=== PATIENT | male | born 1975 | race African-American/Black ===

== ENCOUNTER 2019-10-23 18:15 | Emergency (ER) | payer OTHER ==
[2019-10-23] MEDS ORDERED: ACETAMINOPHEN 325 MG TABLET PO ONE ×2 (20:20→20:33)
[2019-10-23] MEDS ORDERED: NORMAL SALINE 1000 ML 1,000 ML IV ONE (20:40)
--- NOTE | 2019-10-23 20:43 | ER Document Report ---
ED General - General Chief Complaint: Flu Symptoms Stated Complaint: COVID POS (FEVER INCREASE) Time Seen by Provider: 10/23/19 20:12 Primary Care Provider: ANDREA CULP PA-C [Primary Care Provider] - Follow up as needed Notes: Patient is a 44-year-old male that comes emergency department for chief complaint of a fever, sore throat, cough, body aches, painful breathing, and some soreness along the top of his chest. Cough is nonproductive, he denies shortness of breath, he denies nausea or vomiting, denies abdominal pain, denies headache. He is still able to eat without any difficulty. 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 He was seen by urgent care yesterday and had a rapid COVID-19 test performed, he reports this was positive. He has had symptoms now for approximately 3 days. Past medical history of type 2 diabetes on pills only, hypertension, hyperlipidemia, obesity, sleep apnea. He denies smoking, asthma/COPD, NE/CAD, or recreational drugs. TRAVEL OUTSIDE OF THE [place] IN LAST 30 DAYS: No - Related Data Allergies/Adverse Reactions: Penicillins Allergy (Verified 10/23/19 20:08) Past Medical History - General Information source: Patient - Social History Smoking Status: Former Smoker Frequency of alcohol use: Occasional Drug Abuse: None Lives with: Family Family History: Reviewed & Not Pertinent Patient has homicidal ideation: No - Past Medical History Cardiac Medical History: Reports: Hx Hypertension Endocrine Medical History: Reports: Hx Diabetes Mellitus Type 2 Renal/ Medical History: Reports: Hx Kidney Stones Past Surgical History: Reports: Hx Abdominal Surgery - lap band, Hx Orthopedic Surgery - left knee Review of Systems - Review of Systems Constitutional: See HPI EENT: See HPI Cardiovascular: See HPI Respiratory: See HPI Gastrointestinal: No symptoms reported Genitourinary: No symptoms reported Male Genitourinary: No symptoms reported Musculoskeletal: No symptoms reported Skin: No symptoms reported Hematologic/Lymphatic: No symptoms reported Neurological/Psychological: No symptoms reported Physical Exam - Vital signs Vitals: Pulse Resp BP Pulse Ox 117 H 18 145/96 H 96 10/23/19 18:44 10/23/19 18:44 10/23/19 18:44 10/23/19 18:44 - Notes Notes: GENERAL: Alert, interacts well. No acute distress. HEAD: Normocephalic, atraumatic. EYES: Pupils equal, round, and reactive to light. Extraocular movements intact. ENT: Oral mucosa moist, tongue midline. Oropharynx unremarkable. Airway patent. Nares patent, sinuses non-tender, ear canals unremarkable, TM's intact. NECK: Full range of motion. Supple. Trachea midline. No lymphadenopathy. LUNGS: Clear to auscultation bilaterally, no wheezes, rales, or rhonchi. No respiratory distress. Non-tender chest wall. HEART: Borderline tachycardia, normal rhythm, no murmur ABDOMEN: Soft, non-tender. Non-distended. No guarding or distention EXTREMITIES: Moves all 4 extremities spontaneously. No edema, normal radial and dorsalis pedis pulses bilaterally. No cyanosis. BACK: no cervical, thoracic, lumbar midline tenderness. No saddle anesthesia, normal distal neurovascular exam. Moves all extremities in full range of motion. NEUROLOGICAL: Alert and oriented x3. Normal speech. Cranial nerves II through XII grossly intact. Strength 5/5 in all extremities. PSYCH: Normal affect, normal mood. SKIN: Flushed and warm Course - Re-evaluation Re-evalutation: Laboratory work-up indicates no white blood cell abnormality, elevated lymphocytes, low platelets (borderline), very mildly elevated ALT, urinalysis unremarkable, chest x-ray unremarkable, EKG unchanged from prior, troponin is negative. Symptoms have been going on for 3 days. Patient is already reporting that he is positive for COVID-19. Patient is not hypoxic, after treatment of fever and treatment with IV fluids vital signs rechecked and are unremarkable. Patient is well-appearing and without any complaints on my reevaluation. Based on these findings patient does not require admission for COVID-19 infection, I discussed findings in detail, discussed options, patient has no requests and is ready for discharge. I discussed return precautions at length. Patient states understanding and agreement. Stable and well-appearing at time of discharge. - Vital Signs Vital signs: Temp Pulse Resp BP Pulse Ox 99.3 F 97 17 143/88 H 95 10/23/19 23:41 10/23/19 23:41 10/23/19 23:41 10/23/19 23:41 10/23/19 23:41 - Laboratory Result Diagrams: 10/23/19 21:40 10/23/19 21:40 Laboratory results interpreted by me: 10/23/19 10/23/19 10/23/19 21:40 21:40 22:31 WBC 3.9 L Plt Count 134 L [place] % (Auto) 17.6 H Sodium 134.9 L Glucose 267 H AST 60 H Urine Protein 30 H Urine Glucose (UA) >=500 H Urine Ketones TRACE H Urine Ascorbic Acid 40 H - EKG Interpretation by Me Additional EKG results interpreted by me: EKG shows sinus rhythm at a rate of 96, QTC of 410, normal axis. There are borderline inverted T waves in leads V4 and V5, however this is unchanged from prior. No ST segment changes in consecutive leads. Discharge - Discharge Clinical Impression: Dehydration, COVID-19 Fever Qualifiers: Fever type: unspecified Qualified Code(s): R50.9 - Fever, unspecified Condition: Stable Disposition: HOME, SELF-CARE Additional Instructions: You have been treated for dehydration, however your remaining evaluation is reassuring including your chest x-ray. Symptoms should simply resolve with time. Take Tylenol and ibuprofen for fever, drink plenty of fluids, and rest. Perform the 2-week quarantine and avoid contact with others if possible. See additional instructions on this below. Follow-up with primary care. Return if you worsen including difficulty breathing, uncontrolled vomiting, passing out, or any other concerning or worsening symptoms. Keep a log of visitors to your home, notify any visitors to your home of your isolation status. If you plan to move to a new address or leave the county, notify the local health department in your County. Call your Doctor or seek care if you have an urgent medical need. Before seeking medical care, call them to get instructions from the provider before arriving at the medical office, clinic, or hospital. Notify them that you are positive for COVID-19 so that arrangements can be made, as necessary, to prevent transmission to others in the healthcare setting. Next, notify the local health department in your county. If a medical emergency arises and you need to call 911, inform the first respo nders that you are positive for COVID-19. Referrals: ANDREA CULP PA-C [Primary Care Provider] - Follow up as needed
--- NOTE | 2019-10-23 21:41 | RADIOLOGY REPORT (SQ) ---
EXAM DESCRIPTION: XR CHEST 1 VIEW CLINICAL HISTORY: 44 years, Male, chest tightness, fever, shortness of breath, COVID COMPARISON: 03/07/2016. TECHNIQUE: Upright portable chest x-ray FINDINGS: Cardiomediastinal silhouette is not enlarged. No suspicious acute lung pleural bone abnormalities. IMPRESSION: No acute findings in chest.
[2019-10-23 22:04] LABS: ABSOLUTE LYMPHOCYTES (AUTO) 0.8 10^3/uL (0.5-4.7); ABSOLUTE MONOCYTES (AUTO) 0.7 10^3/uL (0.1-1.4); HEMOGLOBIN 13.6 g/dL (13.5-17.0); INTERNATIONAL RATION (INR) 0.96; PROTHROMBIN TIME 12.8 SEC (11.4-15.4); RED CELL DISTRIBUTION WIDTH 12.9 % (11.5-14.0); TOTAL CELLS COUNTED % (AUTO) 100 %; WHITE BLOOD COUNT 3.9 10^3/uL (4.0-10.5)
[2019-10-23 22:06] LABS: VENOUS BLOOD BASE EXCESS 2.2 mmol/L; VENOUS BLOOD HCO3 27.2 mmol/L (20-32); VENOUS BLOOD PCO2 43.7 mmHg (35-63); VENOUS BLOOD PH 7.41 (7.30-7.42)
[2019-10-23 22:17] LABS: ABSOLUTE NEUT (AUTO) 2.4 10^3/uL (1.7-8.2); BASOPHILS % (AUTO) 0.5 % (0-2); HEMATOCRIT 40.7 % (37.9-51.0); LYMPHOCYTES % (AUTO) 20.7 % (13-45); MEAN CORPUSCULAR HEMOGLOBIN 28.8 pg (27.0-33.4); MEAN CORPUSCULAR HGB CONC 33.5 g/dL (32.0-36.0); MEAN CORPUSCULAR VOLUME 86 fl (80-97); MONOCYTES % (AUTO) 17.6 % (3-13); PLATELET COUNT 134 10^3/uL (150-450); RED BLOOD COUNT 4.72 10^6/uL (4.35-5.55); SEGMENTED NEUTROPHILS % (AUTO) 61.2 % (42-78)
[2019-10-23 22:30] LABS: ALBUMIN 4.2 g/dL (3.5-5.0); ALKALINE PHOSPHATASE 57 U/L (38-126); ANION GAP 10 (5-19); ASPARTATE AMINO TRANSFERASE 60 U/L (17-59); BILIRUBIN,DIRECT 0.1 mg/dL (0.0-0.4); BILIRUBIN,TOTAL 0.8 mg/dL (0.2-1.3); BLOOD UREA NITROGEN 10 mg/dL (7-20); CALCIUM 9.4 mg/dL (8.4-10.2); CARBON DIOXIDE 25 mmol/L (22-30); CHLORIDE 100 mmol/L (98-107); GLUCOSE 267 mg/dL (75-110); POTASSIUM 3.8 mmol/L (3.6-5.0); TOTAL PROTEIN 6.8 g/dL (6.3-8.2)
[2019-10-23 22:51] LABS: APPEARANCE,URINE CLEAR; BILIRUBIN,URINE NEGATIVE (NEGATIVE); COLOR,URINE YELLOW; GLUCOSE, URINE >=500 mg/dL (NEGATIVE); KETONES,URINE TRACE mg/dL (NEGATIVE); PROTEIN,URINE 30 mg/dL (NEGATIVE); URINE SPECIFIC GRAVITY 1.026; UROBILINOGEN,URINE NEGATIVE mg/dL (<2.0)
[2019-10-23 23:44] VITALS: BP 143/88
--- NOTE | 2019-10-24 10:09 | EKG REPORT ---
SEVERITY:- ABNORMAL ECG - SINUS RHYTHM PROBABLE LEFT ATRIAL ABNORMALITY NONSPECIFIC T ABNORMALITIES, DIFFUSE LEADS : Confirmed by: Veronica Ramos MD 24-Oct-2019 10:08:39
== END 2019-10-24 00:26 | disposition home or self-care (01) ==
LOC: ER 18:15
DX: U07.1 COVID-19 (principal); E86.0 Dehydration; R50.9 Fever, unspecified; J02.9 Acute pharyngitis, unspecified; R05 Cough; M79.10 Myalgia, unspecified site; Z87.891 Personal history of nicotine dependence; I10 Essential (primary) hypertension; E11.9 Type 2 diabetes mellitus without complications
CPT/HCPCS: 93005; 99284; 96360; 36415; 87040; 83605; 85025; 85610; 80053; 81001; 84484; 82803; 71045; 93010; J7030

== ENCOUNTER 2019-10-27 03:32 | Emergency (ER) | payer OTHER ==
[2019-10-27] MEDS ORDERED: ACETAMINOPHEN 325 MG TABLET PO ONE ×2 (04:07→04:11)
[2019-10-27] MEDS ORDERED: ACETAMINOPHEN 325 MG TABLET ONE (04:13)
[2019-10-27 05:00] LABS: ABSOLUTE LYMPHOCYTES (AUTO) 0.8 10^3/uL (0.5-4.7); ABSOLUTE MONOCYTES (AUTO) 0.4 10^3/uL (0.1-1.4); ABSOLUTE NEUT (AUTO) 2.6 10^3/uL (1.7-8.2); BASOPHILS % (AUTO) 0.4 % (0-2); HEMATOCRIT 40.4 % (37.9-51.0); HEMOGLOBIN 13.8 g/dL (13.5-17.0); LYMPHOCYTES % (AUTO) 20.2 % (13-45); MEAN CORPUSCULAR HGB CONC 34.2 g/dL (32.0-36.0); MEAN CORPUSCULAR VOLUME 85 fl (80-97); MONOCYTES % (AUTO) 11.4 % (3-13); PLATELET COUNT 122 10^3/uL (150-450); RED BLOOD COUNT 4.76 10^6/uL (4.35-5.55); RED CELL DISTRIBUTION WIDTH 12.8 % (11.5-14.0); TOTAL CELLS COUNTED % (AUTO) 100 %; WHITE BLOOD COUNT 3.8 10^3/uL (4.0-10.5)
[2019-10-27 05:13] LABS: ALBUMIN 4.2 g/dL (3.5-5.0); ALKALINE PHOSPHATASE 67 U/L (38-126); ANION GAP 12 (5-19); ASPARTATE AMINO TRANSFERASE 37 U/L (17-59); BILIRUBIN,DIRECT 0.1 mg/dL (0.0-0.4); BILIRUBIN,TOTAL 0.8 mg/dL (0.2-1.3); BLOOD UREA NITROGEN 8 mg/dL (7-20); CALCIUM 9.1 mg/dL (8.4-10.2); CARBON DIOXIDE 25 mmol/L (22-30); CHLORIDE 97 mmol/L (98-107); GLUCOSE 334 mg/dL (75-110); POTASSIUM 3.3 mmol/L (3.6-5.0); TOTAL PROTEIN 7.1 g/dL (6.3-8.2)
[2019-10-27] MEDS ORDERED: NORMAL SALINE 1000 ML 1,000 ML IV ONE (06:02)
[2019-10-27 06:20] LABS: INTERNATIONAL RATION (INR) 0.93; PROTHROMBIN TIME 12.6 SEC (11.4-15.4)
[2019-10-27 06:21] LABS: PARTIAL THROMBOPLASTIN TIME 31.5 SEC (23.5-35.8)
[2019-10-27 07:02] LABS: VENOUS BLOOD BASE EXCESS 0.3 mmol/L; VENOUS BLOOD PCO2 36.3 mmHg (35-63); VENOUS BLOOD PH 7.44 (7.30-7.42)
[2019-10-27] MEDS ORDERED: POTASSIUM CHLORIDE 10 MEQ TABLET.ER PO ONE (07:13)
--- NOTE | 2019-10-27 07:14 | ER Document Report ---
ED GI Bleed / Rectal Pain - General Information source: Patient TRAVEL OUTSIDE OF THE [place] IN LAST 30 DAYS: No - HPI Patient complains to provider of: Bright red bld from rect., Hemorrhoids Onset: Yesterday Timing/Duration: Sudden Quality of pain: No pain Emesis description: Bright red blood Rectal bleeding: Bloody diarrhea Use of: ASA Associated symptoms: denies: Back pain, Abdominal pain Exacerbated by: Denies Relieved by: Denies Similar symptoms previously: No Recently seen / treated by doctor: Yes <IFRAH PÉREZ - Last Filed: 10/27/19 08:16> <RADHA HORN - Last Filed: 10/27/19 11:28> - General Chief Complaint: Bloody Stools Stated Complaint: BLOOD IN STOOL Primary Care Provider: ANDREA CULP PA-C [Primary Care Provider] - Follow up as needed Notes: Patient presents complaining of bloody diarrhea episode that occurred around 6 PM yesterday and a second episode that occurred around 11:30 PM. Patient states he does have a history of hemorrhoids. Patient states he did feel somewhat lightheaded. Patient does report testing positive for COVID on 10/22/2019. Patient states he does have one bruise to the upper arm that he is uncertain how he got that. Patient denies any abdominal tenderness nausea or vomiting. 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 denies: Chest pain Respiratory: No symptoms reported. denies: Cough, Short of breath Gastrointestinal: Diarrhea, Blood streaked bowels, Rectal bleeding. denies: Abdominal pain, Nausea, Vomiting Genitourinary: No symptoms reported. denies: Burning Male Genitourinary: No symptoms reported Musculoskeletal: No symptoms reported Skin: No symptoms reported Hematologic/Lymphatic: No symptoms reported Neurological/Psychological: No symptoms reported <IFRAH PÉREZ - Last Filed: 10/27/19 08:16> Physical Exam - General General appearance: Alert In distress: None - HEENT Head: Normocephalic, Atraumatic Eyes: Normal Conjunctiva: Normal Nasal: Normal Mouth/Lips: Normal Mucous membranes: Normal Neck: Normal, Supple. No: Lymphadenopathy - Respiratory Respiratory status: No respiratory distress Chest status: Nontender Breath sounds: Normal. No: Rales, Rhonchi, Stridor, Wheezing Chest palpation: Normal - Cardiovascular Rhythm: Regular Heart sounds: S1 appreciated, S2 appreciated - Abdominal Inspection: Morbidly Obese Distension: No distension Bowel sounds: Normal Tenderness: Nontender Organomegaly: No organomegaly - Rectal Tenderness: No Stool: Heme positive Hemorrhoids: None - Back Back: Normal, Nontender. No: CVA tenderness - Extremities General upper extremity: Normal inspection, Normal strength General lower extremity: Normal inspection, Normal strength - Neurological Neuro grossly intact: Yes Cognition: Normal H[place]ed Coma Scale Eye Opening: Spontaneous [place] Coma Scale Verbal: Oriented David Coma Scale Motor: Obeys Commands David Coma Scale Total: 15 - Psychological Associated symptoms: Normal affect, Normal mood - Skin Skin Temperature: Warm Skin Moisture: Dry Skin Color: Normal <IFRAH PÉREZ - Last Filed: 10/27/19 08:16> - Vital signs Vitals: Pulse Ox 95 10/27/19 03:43 - Rectal Notes: JOYCE Scott as standby (LULA PÉREZROBIN) Course - Laboratory Result Diagrams: 10/27/19 04:06 10/27/19 04:06 - EKG Interpretation by Me EKG shows normal: Sinus rhythm Rhythm: NSR When compared to previous EKG there are: No significant change <[email or web address] - Last Filed: 10/27/19 08:16> - Laboratory Result Diagrams: 10/27/19 10:07 10/27/19 04:06 <RADHA HORN - Last Filed: 10/27/19 11:28> - Re-evaluation Re-evalutation: 10/27/19 07:[address] Hines regarding patient presentation and diagnostic evaluation. Will repeat patient's CBC with his repeat lactic acid. No imaging ordered at this time as patient does not have any abdominal tenderness symptoms. 10/27/19 08:17 Report and handoff given to Radha Horn DRYING MACHINE BACK TENDER (IRFAH PÉREZ) 10/27/19 08:40 Report received on the patient. Awaiting repeat lab work. 10/27/19 11:27 Patient's lactic did not change. Repeat CBC not significantly different. Spoke with the patient about this at length he has a certified registered nurse practitioner for follow-up. We did discuss his COVID situation. He did have fever today. Current guidelines suggest 24 hours with no fever with no antipyretics patient should be eligible to have colonoscopy with his certified registered nurse practitioner. He will obtain more information about this after calling his certified registered nurse practitioner today. He will retu rn for worsening bleeding episodes or worsening symptoms (RADHA HORN) - Vital Signs Vital signs: Temp Pulse Resp BP Pulse Ox 99.6 F 111 H 18 120/89 H 97 10/27/19 10:17 10/27/19 03:50 10/27/19 06:01 10/27/19 06:01 10/27/19 06:01 - Laboratory Laboratory results interpreted by me: 10/27/19 10/27/19 10/27/19 04:06 04:06 06:26 WBC 3.8 L Hgb Plt Count 122 L VBG pH Sodium 133.5 L Potassium 3.3 L Chloride 97 L Glucose 334 H POC Glucose 308 H 10/27/19 10/27/19 06:45 10:07 WBC 3.5 L Hgb 12.9 L Plt Count 116 L VBG pH 7.44 H Sodium Potassium Chloride Glucose POC Glucose - EKG Interpretation by Me Additional EKG results interpreted by me: 10/27/19 07:13 Sinus rhythm with rate of 95, QTc 423, patient with T wave inversion to the lateral leads that appear to be there on prior EKG, no acute ischemic changes. (IFRAH PÉREZ) Discharge <IFRAH PÉREZ - Last Filed: 10/27/19 08:16> <RADHA HORN - Last Filed: 10/27/19 11:28> - Discharge Clinical Impression: Rectal bleeding Condition: Stable Disposition: HOME, SELF-CARE Additional Instructions: Call your certified registered nurse practitioner today to discuss the need for follow-up for colonoscopy to further evaluate the rectal bleeding. He will need to be aware that you are currently COVID positive and we will have to discuss how they can follow you up in relation to the most current guidelines from the CDC. If you have worsened rectal bleeding onset of abdominal pain or worsening symptoms return for reevaluation Referrals: ANDREA CULP PA-C [Primary Care Provider] - Follow up as needed
[2019-10-27 10:30] LABS: HEMATOCRIT 38.3 % (37.9-51.0); HEMOGLOBIN 12.9 g/dL (13.5-17.0); MEAN CORPUSCULAR HEMOGLOBIN 28.9 pg (27.0-33.4); MEAN CORPUSCULAR HGB CONC 33.8 g/dL (32.0-36.0); MEAN CORPUSCULAR VOLUME 85 fl (80-97); PLATELET COUNT 116 10^3/uL (150-450); RED BLOOD COUNT 4.48 10^6/uL (4.35-5.55); RED CELL DISTRIBUTION WIDTH 12.8 % (11.5-14.0); WHITE BLOOD COUNT 3.5 10^3/uL (4.0-10.5)
[2019-10-27 12:01] VITALS: BP 160/89
--- NOTE | 2019-10-27 23:06 | EKG REPORT ---
SEVERITY:- ABNORMAL ECG - SINUS RHYTHM ABNORMAL T, CONSIDER ISCHEMIA, LATERAL LEADS : Confirmed by: Veronica Ramos MD 27-Oct-2019 23:06:00
== END 2019-10-27 12:02 | disposition home or self-care (01) ==
LOC: ER 03:32
DX: K92.1 Melena (principal); U07.1 COVID-19; R42 Dizziness and giddiness; E66.01 Morbid (severe) obesity due to excess calories; E78.00 Pure hypercholesterolemia, unspecified; I10 Essential (primary) hypertension; E11.9 Type 2 diabetes mellitus without complications; Z87.442 Personal history of urinary calculi; Z88.0 Allergy status to penicillin
CPT/HCPCS: 93005; 99283; 96360; 36415; 87040; 82962; 83605; 83735; 85025; 85610; 85730; 82270; 87077; 80053; 82803; 87150 ×26; 93010; J7030

== ENCOUNTER 2019-10-30 18:11 | Emergency (ER) | payer OTHER ==
[2019-10-30 18:28] VITALS: BP 136/94
[2019-10-30] MEDS ORDERED: RINGERS SOLUTION,LACTATED 1,000 ML IV ONE (18:48)
--- NOTE | 2019-10-30 18:54 | ER Document Report ---
ED Fever - General Mode of Arrival: Ambulatory Information source: Patient TRAVEL OUTSIDE OF THE [place] IN LAST 30 DAYS: No - HPI Onset: Last week Onset/Duration: Persistent Quality of pain: Achy Pain Level: 1 Context: Cough, Diarrhea. denies: Nausea/vomiting Associated symptoms: Body/muscle aches, Nonproductive cough, Diarrhea, Fever, Sweating. denies: Nausea, Vomiting, Shortness of breath Similar symptoms previously: Yes Recently seen / treated by doctor: Yes <IFRAH PÉREZ - Last Filed: 10/30/19 19:59> <STEPHENBOB Dioni - Last Filed: 10/30/19 22:21> - General Chief Complaint: Fever Stated Complaint: FEVER,BLOOD SUGAR HIGH Time Seen by Provider: 10/30/19 18:26 Primary Care Provider: ANDREA CULP PA-C [Primary Care Provider] - Follow up as needed Notes: Patient presents complaining of persistent fever as well as elevated blood sugar. Patient tested positive for COVID on 10/22/2019. Patient has had persistent fever since then although his fever went up to 103 today. Patient states his fever is not been this high. Patient also complains of decrease in appetite. Patient states that he has not had any nausea or vomiting. Patient states that he has had decreased appetite and so he has been eating a lot of fruit today in an attempt to stay hydrated. Patient states that because of this increased sugar he thinks that his blood sugar is elevated. Patient states that he has had persistent diarrhea about 1-2 episodes a day for the past 4 days. Patient states that some of his diarrhea stools will have blood and some do not. Patient states that he just took Tylenol 1 g around 6 PM this evening. 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 Lives with: Family Family History: Reviewed & Not Pertinent - Past Medical History Cardiac Medical History: Reports: Hx Hypercholesterolemia, Hx Hypertension Pulmonary Medical History: Reports: Hx Sleep Apnea Endocrine Medical History: Reports: Hx Diabetes Mellitus Type 2 Renal/ Medical History: Reports: Hx Kidney Stones Past Surgical History: Reports: Hx Abdominal Surgery - lap band, Hx Orthopedic Surgery - left knee <IFRAH PÉREZ - Last Filed: 10/30/19 19:59> Review of Systems - Review of Systems Constitutional: Diaphoresis, Fever, Malaise EENT: No symptoms reported Cardiovascular: No symptoms reported. denies: Chest pain Respiratory: Cough. denies: Short of breath Gastrointestinal: Diarrhea, Blood streaked bowels, Poor appetite, Poor fluid intake. denies: Abdominal pain, Nausea, Vomiting Genitourinary: No symptoms reported. denies: Dysuria Male Genitourinary: No symptoms reported Musculoskeletal: No symptoms reported Skin: No symptoms reported Hematologic/Lymphatic: No symptoms reported Neurological/Psychological: No symptoms reported <IFRAH PÉREZ - Last Filed: 10/30/19 19:59> Physical Exam - General General appearance: Alert In distress: None - HEENT Head: Normocephalic, Atraumatic Eyes: Normal Conjunctiva: Normal Nasal: Normal Mouth/Lips: Normal Mucous membranes: Normal Neck: Normal, Supple. No: Lymphadenopathy - Respiratory Respiratory status: No respiratory distress Chest status: Nontender Breath sounds: Nonproductive cough. No: Rales, Rhonchi, Stridor, Wheezing Chest palpation: Normal - Cardiovascular Rhythm: Tachycardia Heart sounds: S1 appreciated, S2 appreciated - Abdominal Inspection: Morbidly Obese Distension: No distension Bowel sounds: Normal Tenderness: Nontender Organomegaly: No organomegaly - Back Back: Normal, Nontender. No: CVA tenderness - Extremities General upper extremity: Normal inspection, Normal strength General lower extremity: Normal inspection, Normal strength - Neurological Neuro grossly intact: Yes Cognition: Normal David Coma Scale Eye Opening: Spontaneous David Coma Scale Verbal: Oriented [place] Coma Scale Motor: Obeys Commands David Coma Scale Total: 15 - Psychological Associated symptoms: Normal affect, Normal mood - Skin Skin Temperature: Warm Skin Moisture: Diaphoretic Skin Color: Normal <IFRAH PÉREZ - Last Filed: 10/30/19 19:59> - Vital signs Vitals: Temp Pulse Resp BP Pulse Ox 102.1 F H 112 H 16 136/94 H 96 10/30/19 18:27 10/30/19 18:27 10/30/19 18:27 10/30/19 18:27 10/30/19 18:27 Course - Laboratory Result Diagrams: 10/30/19 19:02 10/30/19 19:02 <IFRAH PÉREZ - Last Filed: 10/30/19 19:59> - Laboratory Result Diagrams: 10/30/19 19:02 10/30/19 19:02 <BOB AMIN - Last Filed: 10/30/19 22:21> - Re-evaluation Re-evalutation: 10/30/19 19:26 Patient concerned about need for admission at this time. Patient advised that we will consult with hospitalist once his diagnostic evaluation is complete. 10/30/19 19:59 Report and handoff given to Bob amin CREATIVE SERVICES WRITER (IFRAH PÉREZ) 10/30/19 21:[address] Phillips, the hospitalist overnight. He states that the patient is not hypoxic, the patient can be managed at home. 10/30/19 21:46 I spoke with the patient's and she told me that the patient was only taking 500 mg of Tylenol and not 1000 mg. Advised the to give him 1000 mg of Tylenol. We will also start him on azithromycin. Follow-up precautions were given. Verbal discharge instructions were given to the patient. They verbalized understanding. They are stable for discharge. (BOB AMIN) - Vital Signs Vital signs: Temp Pulse Resp BP Pulse Ox 102.0 F H 112 H 26 H 136/94 H 95 10/30/19 20:18 10/30/19 18:27 10/30/19 22:00 10/30/19 18:27 10/30/19 22:00 - Laboratory Laboratory results interpreted by me: 10/30/19 10/30/19 19:02 19:02 Lymph % (Auto) 11.1 L Seg Neutrophils % 79.5 H Sodium 131.5 L Potassium 3.4 L Chloride 96 L Glucose 320 H Discharge <IFRAH PÉREZ - Last Filed: 10/30/19 19:59> <BOB AMIN - Last Filed: 10/30/19 22:21> - Discharge Clinical Impression: COVID-19 Pneumonia Qualifiers: Pneumonia type: due to unspecified organism Laterality: right Lung location: middle lobe of lung Qualified Code(s): J18.9 - Pneumonia, unspecified organism Condition: Stable Disposition: HOME, SELF-CARE Additional Instructions: You were seen today here in the Emergency Department for COVID 19 symptoms. You have a small amount of developing pneumonia, which you are being treated with antibiotics for. Please make sure you drink plenty of fluids. Please increase her Tylenol to 1000 mg every 6 hours [id number]. This will help you cont rol your temperature. Please stay in quarantine for the full 2 weeks. If you develop shortness of breath, difficulty breathing, pass out, or have any other concerning symptoms, please return to the emergency department. Prescriptions: Azithromycin [Zithromax 250 mg Tablet] 250 mg PO DAILY #4 tablet Referrals: ANDREA CULP PA-C [Primary Care Provider] - Follow up as needed
--- NOTE | 2019-10-30 19:09 | RADIOLOGY REPORT (SQ) ---
EXAM DESCRIPTION: CHEST SINGLE VIEW IMAGES COMPLETED DATE/TIME: 10/30/2019 5:48 pm REASON FOR STUDY: bed 5 sepsis protocol +covid. COMPARISON: 10/23/2019 EXAM PARAMETERS: NUMBER OF VIEWS: One view. TECHNIQUE: Single frontal radiographic view of the chest acquired. RADIATION DOSE: NA LIMITATIONS: None. FINDINGS: LUNGS AND PLEURA: Developing consolidation in the right perihilar region. No pleural effu ramu or pneumothorax. MEDIASTINUM AND HILAR STRUCTURES: No masses. Contour normal. HEART AND VASCULAR STRUCTURES: Heart normal in size. Normal vasculature. BONES: No acute findings. HARDWARE: None in the chest. OTHER: No other significant finding. IMPRESSION: Developing consolidation right perihilar region. TECHNICAL DOCUMENTATION: JOB ID: [id number] 2010 [employer]- All Rights Reserved Reading location - IP/workstation name: [email or web address]
[2019-10-30] MEDS ORDERED: AZITHROMYCIN INJ 500 MG VIAL IV ONE (19:14)
[2019-10-30] MEDS ORDERED: CEFTRIAXONE 1 GM/D5W RTU 1 GM/50 ML RTUPB IV ONE (19:25)
[2019-10-30 19:26] LABS: ABSOLUTE MONOCYTES (AUTO) 0.5 10^3/uL (0.1-1.4); ABSOLUTE NEUT (AUTO) 4.5 10^3/uL (1.7-8.2); HEMOGLOBIN 13.7 g/dL (13.5-17.0); TOTAL CELLS COUNTED % (AUTO) 100 %
[2019-10-30 19:34] LABS: INTERNATIONAL RATION (INR) 0.98; PROTHROMBIN TIME 13.2 SEC (11.4-15.4)
[2019-10-30 19:35] LABS: ABSOLUTE LYMPHOCYTES (AUTO) 0.6 10^3/uL (0.5-4.7); BASOPHILS % (AUTO) 0.2 % (0-2); HEMATOCRIT 39.9 % (37.9-51.0); LYMPHOCYTES % (AUTO) 11.1 % (13-45); MEAN CORPUSCULAR HEMOGLOBIN 28.9 pg (27.0-33.4); MEAN CORPUSCULAR HGB CONC 34.3 g/dL (32.0-36.0); MEAN CORPUSCULAR VOLUME 84 fl (80-97); MONOCYTES % (AUTO) 9.2 % (3-13); PLATELET COUNT 185 10^3/uL (150-450); RED BLOOD COUNT 4.74 10^6/uL (4.35-5.55); SEGMENTED NEUTROPHILS % (AUTO) 79.5 % (42-78); WHITE BLOOD COUNT 5.6 10^3/uL (4.0-10.5)
[2019-10-30 20:02] LABS: ALKALINE PHOSPHATASE 67 U/L (38-126); ANION GAP 11 (5-19); ASPARTATE AMINO TRANSFERASE 36 U/L (17-59); BILIRUBIN,DIRECT 0.2 mg/dL (0.0-0.4); BILIRUBIN,TOTAL 0.8 mg/dL (0.2-1.3); BLOOD UREA NITROGEN 11 mg/dL (7-20); CALCIUM 9.2 mg/dL (8.4-10.2); CARBON DIOXIDE 25 mmol/L (22-30); CHLORIDE 96 mmol/L (98-107); GLUCOSE 320 mg/dL (75-110); POTASSIUM 3.4 mmol/L (3.6-5.0); TOTAL PROTEIN 6.8 g/dL (6.3-8.2)
[2019-10-30 20:21] LABS: VENOUS BLOOD BASE EXCESS 0.7 mmol/L; VENOUS BLOOD HCO3 25.3 mmol/L (20-32); VENOUS BLOOD PCO2 40.4 mmHg (35-63); VENOUS BLOOD PH 7.41 (7.30-7.42)
[2019-10-30] MEDS ORDERED: POTASSIUM CHLORIDE 10 MEQ TABLET.ER PO ONE (21:30)
[2019-10-30] MEDS ORDERED: ACETAMINOPHEN 325 MG TABLET PO ONE (23:48)
--- NOTE | 2019-10-31 09:29 | EKG REPORT ---
SEVERITY:- ABNORMAL ECG - SINUS TACHYCARDIA NONSPECIFIC T ABNORMALITIES, DIFFUSE LEADS : Confirmed by: Murphy Baker MD 31-Oct-2019 09:28:12
== END 2019-10-31 00:07 | disposition home or self-care (01) ==
LOC: ER 18:11
DX: U07.1 COVID-19 (principal); J18.9 Pneumonia, unspecified organism; R19.7 Diarrhea, unspecified; R50.9 Fever, unspecified; E78.00 Pure hypercholesterolemia, unspecified; I10 Essential (primary) hypertension; E11.9 Type 2 diabetes mellitus without complications
CPT/HCPCS: 93005; 99284; 96365; 96367; 36415; 87040; 83605; 85025; 85610; 80053; 82803; 71045; 93010; J7120; J0456; J0696